=== PATIENT | female | born 1990 | race Caucasian/White ===

== ENCOUNTER 2019-12-20 07:44 | Outpatient (CLI) | payer OTHER, SELFPAY ==
--- NOTE | ~2019-12-20 | US_ITS ---
EXAMINATION: US OB <= 14 weeks fetus DATE: 12/20/2019 08:22 INDICATION: First trimester dating TECHNIQUE: Real-time pelvic transabdominal and transvaginal ultrasound was performed. COMPARISON: None. FINDINGS: The uterus measures 9.2 x 6.0 x 8.3 cm. There is an intrauterine gestational sac. A yolk s ac is identified. heart motion is identified measuring 173 beats per minute (bpm) by M-mode Dop pler. The crown rump length measures 1.8 cm , which correlates with an estimated gestational ag e of 8 weeks and 0 day(s) (+/-) 4 day(s). The left ovary is not visualized however no left adnexal abnormality is seen. The right ovary measure s 3.1 x 1.5 x 1.9 cm. There is no free fluid in the pelvis. IMPRESSION: 1. Live intrauterine with an estimated gestational age of 8 weeks and 0 day(s) (+/-) 4 day( s) and an estimated delivery date of 07/31/2020. Reviewed, dictated and finalized at location A. [place] [employer] IMPRESSION: 1. Live intrauterine with an estimated gestational age of 8 weeks and 0 day(s) (+/-) 4 day(s) and an estimated delivery date of 07/31/2020.
== END 2019-12-20 07:45 | disposition home or self-care (01) ==
LOC: ANHIMG 07:50
PROVIDERS: Visit Provider Obstetrics & Gynecology
DX: Z36.87 Encounter for antenatal screening for uncertain dates (principal); Z3A.08 8 weeks gestation of pregnancy
CPT/HCPCS: 76801

== ENCOUNTER 2020-02-28 13:10 | Outpatient (CLI) | payer OTHER, SELFPAY ==
--- NOTE | ~2020-02-28 | US_ITS ---
EXAMINATION: US OB /maternal detail DATE: 02/28/2020 14:08 INDICATION: survey TECHNIQUE: Multiple obstetric sonographic images performed. FINDINGS: Comparison to ultrasound dated 12/20/2019 There is a single living fetus in breech presentation. The placenta is anterior without placenta pre via. Placenta margin is 2.7 cm to the cervix. Amniotic fluid volume is normal. cardiac activity and movement is noted with a heart rate of 143 beats per minute. The following anatomy was identified as normal: 4 chamber heart 3 vessel cord cord insertion kidneys urinary bladder stomach diaphragm ventricles cisterna magna cerebellum The spine is not well visualized on axial images. Recommend attention to the spine on follow-up exami nation. The following biometric data were obtained: BPD: 43mm corresponds to gestational age 18 weeks 6 days. Head circumference: 163 mm corresponds to gestational age 19 weeks 0 days. Abdominal circumference: 142 mm corresponds to gestational age 19 weeks 4 days. Femur length: 27 mm corresponds to gestational age 18 weeks 1 days. Head circumference to abdominal circumference ratio: 1.15 (normal range for expected gestational age is 1.09-1.26). Estimated weight: 265 grams +/- 40 grams using Hadlock method. IMPRESSION: 1: Single living intrauterine with an estimated gestational age of 18weeks 0days by initial ultrasound measurements, with an EDC of 07/31/2020 in breech presentation. 2. Survey limited for evaluation of the spine. Otherwise, unremarkable survey.. Reviewed, dictated and finalized at location A. IMPRESSION: 1: Single living intrauterine with an estimated gestational age of 18 weeks 0days by initial ultrasound measurements, with an EDC of 07/31/2020 in martha ech presentation. 2. Survey limited for evaluation of the spine. Otherwise, unremarkable survey. .
== END 2020-02-28 13:11 | disposition home or self-care (01) ==
LOC: ANHIMG 13:15
PROVIDERS: PCP Registered Nurse; Visit Provider Obstetrics & Gynecology
DX: Z34.90 Encounter for supervision of normal pregnancy, unspecified, unspecified trimester (principal); Z3A.18 18 weeks gestation of pregnancy
CPT/HCPCS: 76805

== ENCOUNTER 2020-03-20 10:29 | Outpatient (CLI) | payer OTHER, SELFPAY ==
--- NOTE | ~2020-03-20 | US_ITS ---
EXAMINATION: US OB limited DATE: 03/20/2020 11:53 INDICATION: Incomplete anatomic survey, second trimester TECHNIQUE: Real-time ultrasound of the pelvis was performed. The interpreting radiologist was not pre sent for the study. COMPARISON: 02/28/2020 FINDINGS: There is a single living fetus in variable presentation. The placenta is anterior and 3.3 c m from the internal cervical os. cardiac activity and movement are noted. heart rat e is 137 beats per minute (bpm). The amniotic fluid index is subjectively normal. The spine is normal in appearance. IMPRESSION: 1. Single living fetus in variable presentation. 2. Normal spine. Reviewed, dictated and finalized at location A.
== END 2020-03-20 10:30 | disposition home or self-care (01) ==
PROVIDERS: PCP Registered Nurse; Visit Provider Obstetrics & Gynecology
DX: Z36.2 Encounter for other antenatal screening follow-up (principal)
CPT/HCPCS: 76815

== ENCOUNTER 2020-07-28 06:27 | Inpatient (IN) | payer OTHER, SELFPAY ==
[2020-07-28] VITALS (84 sets, daily range): BP systolic 95–124; BP diastolic 45–81; PULSE 74–116; RESP 18; TEMP 36.6–37.3; O2SAT 100; BMI 24.4
[2020-07-28] MEDS: LACTATED RINGERS 1,000 ML 125 ML IV CONT ×3 (07:23→09:28)
[2020-07-28 07:39] LABS: Basophils Percent Auto 0.3 % (0.2-1.2); Eosinophils Percent Auto 0.2 % (0-4.4); Hematocrit 29.7 % (37.0-47.0); Hemoglobin 9.7 g/dL (12.0-15.0); Immature Granulocyte Absolute 0.25 K/mm3 (0.00-0.031); Immature Granulocyte Percent A 1.9 % (0-0.5); Lymphocytes Absolute Auto 1.74 K/mm3 (0.9-3.2); Lymphocytes Percent Auto 13.2 % (18.3-44.2); Mean Corpuscular HGB Conc 32.7 g/dl (32-36); Mean Corpuscular Hemoglobin 28.2 pg (26-34); Mean Corpuscular Volume 86.3 fl (80-100); Mean Platelet Volume 10.2 fl (7.4-10.4); Monocytes Absolute Auto 0.8 K/mm3 (0.1-0.6); Monocytes Percent Auto 5.8 % (2.6-8.5); Neutrophils Absolute Auto 10.4 K/mm3 (1.3-6.7); Neutrophils Percent Auto 78.6 % (45.5-73.1); Platelet Count Result 158 k/mm3 (150-375); Red Blood Count 3.44 M/mm3 (4.2-5.4); Red Cell Distribution Width 12.8 % (11.5-14.5); White Blood Count 13.2 K/mm3 (4.5-10.0)
[2020-07-28] MEDS: OXYTOCIN 30 UNITS/NS 500 ML 30 UNITS/500 ML BAG IV CONT (08:50)
--- NOTE | 2020-07-28 08:54 | P.PNAN_ITS ---
Anes - Eval Pre Procedure Procedure: labor epidural Date/Time: 07/28/20 08:54 Pre Op Diagnosis: Induction of Labor Patient Data Age: 30 Gender: F Height: 1.75 m Weight: 75 kg Last Vital Signs Temp 36.9 C 07/28/20 08:00 Pulse 94 07/28/20 08:52 BP 101/59 L 07/28/20 08:52 Pulse Ox 100 07/28/20 08:53 Allergies Allergy/AdvReac Type Severity Reaction Status Date / Time No Known Allergies Allergy Verified 07/03/20 15:51 Home Medications Medication Instructions Recorded Confirmed Type No Home Medications 12/27/19 12/27/19 History Laboratory Tests 07/28/20 07/28/20 07:14 07:14 WBC 13.2 K/mm3 H K/mm3 (4.5-10.0) RBC 3.44 M/mm3 L M/mm3 (4.2-5.4) Hgb 9.7 g/dL L g/dL (12.0-15.0) Hct 29.7 % L % (37.0-47.0) MCV 86.3 fl fl (80-100) MCH 28.2 pg pg (26-34) MCHC 32.7 g/dl g/dl (32-36) RDW 12.8 % % (11.5-14.5) Plt Count 158 k/mm3 k/mm3 (150-375) MPV 10.2 fl fl (7.4-10.4) Immature Gran % (Auto) 1.9 % H % (0-0.5) Neut % (Auto) 78.6 % H % (45.5-73.1) Lymph % (Auto) 13.2 % L % (18.3-44.2) [place] % (Auto) 5.8 % % (2.6-8.5) Eos % (Auto) 0.2 % % (0-4.4) Baso % (Auto) 0.3 % % (0.2-1.2) Lymph # (Auto) 1.74 K/mm3 K/mm3 (0.9-3.2) [place] # (Auto) 0.8 K/mm3 H K/mm3 (0.1-0.6) Eos # (Auto) 0.0 K/mm3 K/mm3 (0-0.3) Baso # (Auto) 0.0 K/mm3 K/mm3 (0.0-0.1) Abs Immat Gran (auto) 0.25 K/mm3 H K/mm3 (0.00-0.031) Absolute Neuts (auto) 10.4 K/mm3 H K/mm3 (1.3-6.7) Absolute Nucleated RBC 0.0 K/mm3 K/mm3 (0.0-0.012) Nucleated RBC % 0.0 % % (0.0-0.2) RPR Pending Patient hx anesthesia problems: none Family hx anesthesia problems: none [facility] Past Medical History Medical History Surgical History Surgical History History of arthroscopy of knee 2011 Family History Family History Grandparent Heart disease Mother High cholesterol Other Skin cancer Social History Social History Smoking status: Never smoker Second hand tobacco smoke exposure: No Alcohol intake: never Substance use: never Spiritual care concerns: No Exam Day of Procedure 07/28/20 08:54 Patient weight: normal Heart: regular rate and rhythm Lungs: normal air movement Airway: Mallampati scale class II Neurological: alert and oriented
--- NOTE | 2020-07-28 09:46 | P.HP_ITS ---
Obstetrics - Admit Note Admission Note: AROm clear fluid / record reviewed. No pertinent additions to the history and/or any subsequent changes in the physical findings that are not consistent with the expected course of the were found. Additions to the history and/or subsequent changes in the physical findings fo llow. None.
--- NOTE | 2020-07-28 13:33 | PM.OBPRVD ---
OB - Delivery Note Procedure Delivery date: 07/28/20 events: Labor Induction Intrapartal events: None Induction method: AROM and per pitocin protocol Route of delivery: Laceration description: Perineal - 2nd Degree Delivery repair: vicryl Specimen: No Estimated blood loss (mL): 230 Anesthesia type: Epidural Disposition: floor [place] Baby Date of : 07/28/20 Time of : 13:15 Weeks of gestation at delivery: 39 Infant gender: Male presentation: vertex position: Left Occiput Anterior Placenta delivery description: Spontaneous cord vessel description: 3 Vessels and Clamped/Cut score one minute: 8 score five minutes: 9
[2020-07-28] MEDS: OXYTOCIN 30 UNITS/NS 500 ML 30 UNITS/500 ML BAG 125 UNITS IV CONT (13:58)
[2020-07-28] MEDS: BENZOCAINE 20% AER SPR (*SP) 56 GM CAN 1 SPRAY TOPICAL (15:15)
[2020-07-28] MEDS: IBUPROFEN 600 MG TABLET PO ×2 (15:15→21:48)
[2020-07-28] MEDS: WITCH HAZEL 40 PADS 1 PAD TOPICAL (15:15)
[2020-07-28] MEDS: HYDROcodone/acetaminophen (*CRX) 5-325 MG TABLET 1 TAB (16:41)
[2020-07-28] MEDS: LACTATED RINGERS 1,000 ML 999 ML IV CONT (17:08)
[2020-07-28] MEDS: fentaNYL CITRATE INJ (*CRX) 100 MCG/2 ML VIAL 50 MCG IV PUSH (17:08)
[2020-07-28] MEDS: POLYSACCHARIDE IRON COMPLEX 150 MG CAPSULE PO (18:38)
[2020-07-28] MEDS: ACETAMINOPHEN 325 MG TABLET 650 MG PO (18:38)
[2020-07-29] MEDS: ACETAMINOPHEN 325 MG TABLET 650 MG PO ×3 (00:11→13:42)
[2020-07-29] MEDS: IBUPROFEN 600 MG TABLET PO (03:57)
[2020-07-29 04:00] VITALS: TEMP 36.8
[2020-07-29 04:29] LABS: Hematocrit 24.4 % (37.0-47.0); Hemoglobin 8.1 g/dL (12.0-15.0)
[2020-07-29 07:50] VITALS: BP 107/63; PULSE 83; RESP 16; TEMP 36.6; O2SAT 100
[2020-07-29] MEDS: POLYSACCHARIDE IRON COMPLEX 150 MG CAPSULE PO (08:11)
[2020-07-29] MEDS: DOCUSATE SODIUM 100 MG CAPSULE PO (08:11)
--- NOTE | 2020-07-29 08:29 | WPDANLDPN2 ---
Anes-Prog Note L&D Date/Time: 07/29/20 08:29 Comfortable throughout: labor and delivery Neuraxial method: epidural Epidural/Spinal procedure site: clean & non-tender Neuro status: Neuro function grossly intact. Cardiovascular status: normal Respiratory status: normal Airway patency: baseline Mental status: baseline Post-Op hydration status: normal Vital Signs: Last Vital Signs Temp 36.8 C 07/29/20 04:00 Pulse 82 07/28/20 20:00 Resp 18 07/28/20 20:00 BP 115/71 07/28/20 20:00 Pulse Ox 100 07/28/20 20:00 Pain score (VAS): 11/10 I/O: Intake & Output 07/28/20 07/29/20 07/29/20 23:59 07:59 15:59 Intake Total 1250 Balance 1250 Post-procedural complaints: none Patient feedback: Patient satisfied with anesthetic care.
--- NOTE | 2020-07-29 09:20 | PM.OBPNVD ---
OB - PN: Subj Subjective Date/time seen: 07/29/20 09:20 Patient comments: other (left flank pain-ice and tylenol helping some) baby status: doing well and nursing well OB - PN: Obj Data Labs CBC & Chem 7: 07/29/20 04:12 Labs: Laboratory Results - last 24 hr 07/29/20 04:12 Hgb 8.1 L Hct 24.4 L OB - PN A/P Assessment and Plan (1) Left flank pain: Code(s): R10.9 - Unspecified abdominal pain Status: Acute Assessment and Plan: immediate post epidural wearing off suspect muscular plan flexeril and continue ice and tylenol (2) (normal spontaneous vaginal delivery): Code(s): O80 - Encounter for full-term uncomplicated delivery Status: Acute Assessment and Plan: doing well dc home plans oc's until Mirena Time Spent With Patient Time: Total time spent is greater than 50% in coordination of care (as documented) at patient's floor/unit and/or counseling patient: Exam : General: Yes CVA tenderness on the left Bimanual exam- vagina & uterus: other (Uterus firm, nt @U)
[2020-07-29] MEDS: CYCLOBENZAPRINE HCL 10 MG TABLET PO (10:01)
[2020-07-29 11:43] LABS: Rapid Plasma Reagin Non-Reactive (NonReactive)
[2020-08-01 11:11] VITALS: BP 123/75; PULSE 78; RESP 18; TEMP 36.8; O2SAT 100
--- NOTE | 2020-08-03 11:25 | PM.OBDSVD ---
DS: Admitting Diagnosis Admitting Diagnosis Admitting Diagnosis: Induction of Labor DS: Discharge Diagnosis Discharge Diagnosis (1) (normal spontaneous vaginal delivery): Code(s): O80 - Encounter for full-term uncomplicated delivery Status: Acute (2) Left flank pain: Code(s): R10.9 - Unspecified abdominal pain Status: Acute OB - DS: Summary OB Procedures : None OB Procedures Intrapartum: Spontaneous Vag Delivery OB Procedures: : None Time Spent with Patient Time attestation: Total time spent providing and/or coordinating discharge services: Discharge Plan Discharge Attending physician on discharge: Erasmo Corea Discharging Clinician: Erasmo Corea Patient Disposition: Home, Self-Care Activity: may shower and pelvic rest Diet: regular Discharge Instructions: Education: Mom and Baby Guide Given to: Mother Follow-Up: Call your delivering provider's office for an appointment to be seen in: Call for appointment Mom and baby [facility] come [facility] for the follow-up appointment. Appointment Date/Time: August 01, 2020 at 11:00 am What to expect at your follow-up visit: Physical Assessment Call [phone] if you are unable to keep your appointment time. BREAST CARE: * Wear a snug supportive bra. * For engorgement discomfort: Breast Feeding: * Apply warm moist washcloths * Express milk as needed to relieve engorgement * Wear loose clothing * For sore nipples: * Identify correct latch-on * Apply warm moist washcloths before and after nursing * Air dry nipples after nursing * May apply Lansinoh cream to nipples EPISIOTOMY/PERINEAL CARE: * Until bleeding stops, use your omari bottle after urinating * Change your pad frequently throughout the day * You may take sitz baths several times a day (fill your bathtub with warm water and soak for 20 minutes.) Do NOT bathe in the water * No tub baths until seen by your physician - You may shower ACTIVITY: * Rest as much as possible. * Do not exercise or lift anything heavier than your baby (such as laundry or other children.) * Avoid stairs or driving as much as possible. * Do not put anything into the vagina. No douching, tampons, or sexual activity until seen by physician. NOTIFY PHYSICIAN IF YOU HAVE ANY QUESTIONS OR IF ANY OF THE FOLLOWING SYMPTOMS OCCUR: * If your episiotomy or incision becomes red, swollen, or more painful than what you have experienced in the hospital. * If your vaginal bleeding becomes foul smelling. * If your vaginal bleeding becomes more heavy than a period or if your bleeding changes from pink to bright red. However, you may pass an occasional walnut-sized clot once or twice for the first week . * If you experience a sharp, shooting pain in you calves. * If you discover a hard, reddened area on your breast or if you experience flu-like symptoms. DIET: * Eat regular, well-balanced meals. * Drink plenty of fluids daily. If , drink to thirst. Patient Instructions: Antibiotic Form Stand Alone Forms: General Discharge Information Follow-up/Referrals: Erasmo Corea MD [Physician] - Discharge Medications: New cyclobenzaprine 10 mg tablet 10 mg PO TID PRN (Reason: muscle spasm) Qty: 20 RF: 0 norethindrone-e.estradiol-iron [Minastrin 24 Fe] 1 mg-20 mcg(24) /75 mg (4) tablet,chewable 1 tablet PO DAILY Qty: 1 RF: 2 norethindrone (contraceptive) 0.35 mg tablet 0.35 mg PO DAILY Qty: 1 RF: 2 Date of admission: 07/28/20 06:27 Primary Care Provider: StaciReina Mills Admitting Provider: Erasmo Corea Discharge Date/Time: 07/29/20 17:50 Attending physician on admission: Sahara Thomas
== END 2020-07-29 17:50 | disposition home or self-care (01) | DRG 807 ==
LOC: ANHLDR 13:33 → ANHOB2 07-29 16:52 → ANHLDR 07-30 12:55 → ANHOB2 07-30 12:55
PROVIDERS: Admitting Provider Obstetrics & Gynecology; PCP Registered Nurse; Visit Provider Obstetrics & Gynecology Gynecology
DX: O70.1 Second degree perineal laceration during delivery (principal); Z37.0 Single live birth; O69.81X0 Labor and delivery complicated by cord around neck, without compression, not applicable or unspecified; Z3A.39 39 weeks gestation of pregnancy; R10.9 Unspecified abdominal pain
CPT/HCPCS: 36415; 85014; 85018; 85025; 86592; 86850; 86900; 86901; A9270; J2590; J2795; J3010; J7120